=== PATIENT | female | born 1985 | race Caucasian/White ===

== ENCOUNTER 2020-03-24 14:59 | Emergency (ER) | payer SELFPAY ==
[~2020-03-24] VITALS: Ht 152.4 cm; Wt 52.7 kg
[2020-03-24 15:10] VITALS: BP 145/85
--- NOTE | 2020-03-24 15:12 | PHYS DOC ---
Adult General Chief Complaint Chief Complaint: ABDOMINAL PAIN HPI HPI Patient is a 34-year-old female who presents via EMS from [facility] for abdominal pain and vaginal bleeding. Per EMS report, patient was recently released from [facility] after initial intake and suddenly started complaining of vaginal bleeding and abdominal pain. Patient was released from their custody and EMS was called to transport patient to our facility. EMS denies any observed or obvious blood loss during her time in their ambulance. Nonetheless, on arrival, patient not wanting to be seen or evaluated our facility. Patient refused vital signs and intake evaluation. Review of Systems Review of Systems Patient refused to participate in exam Physical Exam Physical Exam Constitutional: Well developed, well nourished, nontoxic appearance, moderate distress HENT: Normocephalic, atraumatic, bilateral external ears normal, oropharynx moist, no oral exudates, nose normal. Eyes: PERRLA, EOMI, conjunctiva normal, no discharge. Neck: Normal range of motion, no tenderness, supple, no stridor. Cardiovascular: Heart rate regular, sinus rhythm, no murmurs rubs or gallops Lungs & Thorax: Bilateral chest rise, increased work of breathing due to anxiety/intoxication, no accessory muscle use Abdomen: Deferred Skin: Warm, dry, no erythema, no rash. Back: No tenderness, no CVA tenderness. Extremities: No tenderness, no cyanosis, no clubbing, ROM intact, no edema. Neurologic: Alert and oriented X 3, grossly normal motor & sensory function, no focal deficits noted. Psychologic: Tearful affect, distressed mood EKG EKG [] Radiology/Procedures Radiology/Procedures [] Course & Med Decision Making Course & Med Decision Making Patient seen and evaluated on immediate ER arrival, was self ambulatory from ambulance to patient examination room Airway patent, no obvious respiratory distress but increased work of breathing due to emotional distress, patient refused to have vital signs taken I attempted to obtain history and performed physical exam, patient declined Patient wanting to be discharged, reports having family who can pick her up so she can be seen and evaluated at [facility] in [facility] ([place], [place]) I have reviewed the relevant issues with the patient. They are aware of the unknown diagnosis due to limited medical exam The patient is AAOx3, exhibits no alcohol or drug intoxication to a point that would impair ability to delineate a choice, and demonstrates all four dickson elements of capacity to make decisions regarding the medical care offered. - Patient able to Communicate their treatment choice - Patient able to Understand and recall information - Patient able to Appreciate and process probable outcomes of their condition - Patient able to Reason through communication their rationalization about their choice of care options, regardless of whether I as their provider agree with their rationale. Risks and Recommendations: The risks of refusing recommended care that were disclosed and acknowledged by the patient include loss of current lifestyle, permanent mental impairment, and . The recommended medical care being refused has been discussed with the patient and is to stay for continued monitoring, workup, and possible treatment. Discharge Care: The patient understands they are welcome to return to the [facility] at any time to receive the recommended care or any other care at any time, regardless of their ability to pay for such care. Dragon Disclaimer Dragon Disclaimer This electronic medical record was generated, in whole or in part, using a voice recognition dictation system. Departure Departure: Impression: Primary Impression: Left against medical advice Additional Impressions: Abdominal pain Vaginal bleeding Disposition: 07 AGAINST MEDICAL ADVICE (Patient signed informed prior to departure, left with family member in POV) Condition: STABLE Referrals: PCP,UNKNOWN (PCP) Additional Instructions: You have been evaluated in the Emergency Department today. You are refusing further testing, imaging, and further admission and choosing to leave against medical advice. You were advised of your risks of leaving and understand that permanent harm, or even , can occur from failing to follow the recommendations of the p hysician. Please follow up with your primary care physician as needed. If you do not have a primary doctor, you can call your insurance company to find one. Return to the Emergency Department immediately if you experience worsening or uncontrolled pain, persistent fevers, recurrent vomiting, blood in vomit, blood in stool, dark tarry stool, chest pain, shortness of breath, or for any other concerning symptoms. Justification of Admission: Justification of Admission: Justification of Admission Dx: N/A Problem Qualifiers SHERRI GUTHRIE DO Mar 24, 2020 15:12
== END 2020-03-24 15:14 | disposition left against medical advice (07) ==
LOC: ER 14:59
DX: N93.9 Abnormal uterine and vaginal bleeding, unspecified (principal); R10.9 Unspecified abdominal pain
CPT/HCPCS: 99283